=== PATIENT | male | born 1950 | race Caucasian/White ===

== ENCOUNTER 2022-06-24 08:04 | Day surgery (SDC) | payer OTHER, MEDICARE, SELFPAY ==
[2022-06-21 07:46] VITALS: BMI 24.8
--- NOTE | 2022-06-24 08:07 | W.PM.OPSFHP ---
Same Day Surgery H&P Indication for Procedure/HPI DATE OF PROCEDURE: June 24, 2022 CHIEF COMPLAINT/INDICATIONFOR SURGICAL PROCEDURE: Screening PREOP DIAGNOSIS: Screening PLANNED PROCEDURE: Operation Date: 06/24/22 09:45 Proposed Procedures p Colonoscopy 69489,Z12.11(Not Applicable) - William Hernández MD Medications/Allergies* Home Medications Medication Instructions Recorded Confirmed Type amlodipine 5 mg tablet 5 mg PO DAILY 06/19/22 06/21/22 History celecoxib 100 mg capsule 100 mg PO BID 06/19/22 06/21/22 History levothyroxine 75 mcg tablet 75 mcg PO DAILY 06/19/22 06/21/22 History (Synthroid) lisinopril 40 mg tablet 40 mg PO DAILY 06/19/22 06/21/22 History pravastatin 40 mg tablet 40 mg PO DAILY 06/19/22 06/21/22 History tamsulosin 0.4 mg capsule 0.4 mg PO DAILY 06/19/22 06/21/22 History tizanidine 4 mg capsule 4 mg PO BEDTIME 06/19/22 06/21/22 History Allergies/Adverse Reactions Allergy/AdvReac Type Severity Reaction Status Date / Time No Known Allergies Allergy Unverified 06/19/22 10:07 Pertinent History/Comorbid Conditions* Family History (Updated 06/19/22 @ 10:19 by Heather Lara LPN) Father Mother Cancer Mother Social History Smoking and tobacco status: former smoker Quit status (tobacco): has quit using tobacco Second hand smoke exposure: No Smoking risk assessment/counseling performed?: No Alcohol intake: former Desire information about alcohol rehabilitation?: No Counseling given: No Desire information about substance/drug rehabilitation?: No Counseling given: No Adopted: No Caregiver/support person: No Lives independently: Yes Household members: spouse Housing: House Marital status: Number of children: 2 Highest education level completed: High School Graduate service: No Current occupational status: employed Pertinent Exam Findings alert, oriented x 3, clear to auscultation bilaterally, regular rate & rhythm, operative site marked and procedure specific exam findings Recommendations Surgery/Procedure today Coding Level of Care Code [facility] [place] Worker for Grant Morelos
[2022-06-24 08:31] VITALS: BP 145/98; PULSE 90; RESP 16; TEMP 36.4; O2SAT 99
[2022-06-24] MEDS: sodium chloride 0.9% 1,000 ML 30 ML IV ×2 (08:40→10:39)
--- NOTE | 2022-06-24 09:44 | ANES.PREANE2 ---
Pre-Anesthetic Assessment Height/Weight: Height 1.8 m Weight 80.739 kg Temp Pulse Resp BP Pulse Ox O2 Del Method 97.6 F 90 16 145/98 99 06/24/22 08:31 06/24/22 08:31 06/24/22 08:31 06/24/22 08:31 06/24/22 08:31 06/24/22 08:31 Preop Diagnosis: Screen Operation Date: 06/24/22 09:45 Proposed Procedures p Colonoscopy 82451,Z12.11(Not Applicable) - William Hernández MD Familial anesthetic complications: none Was Beta Dawson taken within 24 hours: N/A Was Clonidine taken within 24 hours: N/A Last intake: Intake Last Liquid Date 06/23/22 Last Liquid Time 23:30 Last Solid Date 06/22/22 Last Solid Time 18:00 Social No alcohol and No tobacco Exam alert, oriented x 3, clear to auscultation bilaterally and regular rate & rhythm Airway Submandibular: within normal limits Cervical ROM: within normal limits Mallampati: Class II Dentition: chipped CV/HEM Hypertension Metabolic Hyperlipidemia and Thyroid Disease Anesthetic Plan ASA status: 2 Anesthesia: MAC Medications/Allergies Home Medications Medication Instructions Recorded Confirmed Last Taken Type amlodipine 5 mg tablet 5 mg PO DAILY 06/19/22 06/24/22 06/23/22 History celecoxib 100 mg capsule 100 mg PO BID 06/19/22 06/24/22 06/22/22 History levothyroxine 75 mcg tablet 75 mcg PO DAILY 06/19/22 06/24/22 06/24/22 History (Synthroid) lisinopril 40 mg tablet 40 mg PO DAILY 06/19/22 06/24/22 06/23/22 History pravastatin 40 mg tablet 40 mg PO DAILY 06/19/22 06/24/22 06/23/22 History tamsulosin 0.4 mg capsule 0.4 mg PO DAILY 06/19/22 06/24/22 06/23/22 History tizanidine 4 mg capsule 4 mg PO BEDTIME 06/19/22 06/24/22 06/23/22 History Allergies Allergy/AdvReac Type Severity Reaction Status Date / Time No Known Allergies Allergy Unverified 06/19/22 10:07 Current Medications Generic Name Dose Route Start Last Admin Trade Name Freq PRN Reason Stop Dose Admin Sodium Chloride 1,000 mls @ 30 mls/hr 06/24/22 08:30 06/24/22 08:40 Sodium Chloride 0.9% IV 30 mls/hr .Q24H ARI Administration PFSH Anesthesia Family History (Updated 06/19/22 @ 10:19 by Heather Lara LPN) Father No problems noted. Mother Cancer Social History (Updated 06/19/22 @ 10:21 by Heather Lara LPN) Smoking and tobacco status: former smoker Quit status (tobacco): has quit using tobacco Second hand smoke exposure: No Smoking risk assessment/counseling performed?: No Alcohol intake: former Desire information about alcohol rehabilitation?: No Counseling given: No Desire information about substance/drug rehabilitation?: No Counseling given: No Adopted: No Caregiver/support person: No Lives independently: Yes Household members: spouse Housing: House Marital status: Number of children: 2 Highest education level completed: High School Graduate service: No Current occupational status: employed Data Anesthesia Cardiac Studies: No Data to Display
[2022-06-24 11:03] VITALS: BP 109/73; PULSE 70; RESP 16; TEMP 36.3; O2SAT 99
[2022-06-24 11:13] VITALS: BP 127/81; PULSE 81; RESP 16; O2SAT 98
--- NOTE | 2022-06-24 12:54 | ANE.PACU2 ---
Inpatient post-anesthesia follow up: Airway intact: Yes Vital signs: Temperature 97.3 F Pulse Rate 81 Respiratory Rate 16 Blood Pressure 127/81 Pulse Oximetry 98 Oxygen Delivery Me thod Room Air Oxygen Flow Rate Fraction of Inspir ed Oxygen Hydration adequate: Yes Nausea and vomiting: No Pain level: 1 Mental status: Baseline
== END 2022-06-24 11:26 | disposition home or self-care (01) ==
PROVIDERS: PCP Nurse Practitioner Family; Visit Provider Internal Medicine
PROC: 0DJD8ZZ Inspection of Lower Intestinal Tract, Via Natural or Artificial Opening Endoscopic (ICD-10-PCS; CPT 45378; principal; 2022-06-24 09:45)
DX: Z12.11 Encounter for screening for malignant neoplasm of colon (principal); K57.30 Diverticulosis of large intestine without perforation or abscess without bleeding; I10 Essential (primary) hypertension; E78.5 Hyperlipidemia, unspecified; Z87.891 Personal history of nicotine dependence
CPT/HCPCS: G0121; J2704; J7030

== ENCOUNTER 2023-11-03 09:18 | Outpatient (CLI) | payer OTHER, MEDICARE, SELFPAY ==
[2023-11-03 10:16] LABS: Alanine Aminotransferase 10 U/L (0-41); Albumin Level 4.8 g/dL (3.5-5.2); Alkaline Phosphatase 89 U/L (40-130); Aspartate Amino Transferase 17 U/L (0-40); Blood Urea Nitrogen 18 mg/dL (8-23); Carbon Dioxide 25 mmol/L (22-29); Chloride 93 mmol/L (98-107); Creatine Phosphokinase 136 U/L (39-308); Globulin 2.4 g/dL (1.3-4.6); Glucose 109 mg/dL (65-115); Osmolality Calculated 268 mOsm/kg (285-295); Sodium 128 mmol/L (136-145); Total Bilirubin 0.3 mg/dL (0.15-1.2); Total Protein 7.2 g/dL (6.6-8.7)
[2023-11-03 10:19] LABS: Anion Gap 14.5 (5-19); Potassium 4.5 mmol/L (3.5-5.1)
== END 2023-11-03 09:19 | disposition home or self-care (01) ==
LOC: LAB 09:22
PROVIDERS: PCP Nurse Practitioner Family; Visit Provider Dermatology
DX: C44.311 Basal cell carcinoma of skin of nose (principal)
CPT/HCPCS: 36415; 80053; 82550

== ENCOUNTER → 2024-03-11 12:51 | Outpatient (BNVA) | payer MEDICARE, OTHER, SELFPAY | PROVIDERS: PCP Nurse Practitioner Family; Visit Provider Dermatology | DX: C44.01 Basal cell carcinoma of skin of lip (principal); C44.311 Basal cell carcinoma of skin of nose; C44.219 Basal cell carcinoma of skin of left ear and external auricular canal; Z85.828 Personal history of other malignant neoplasm of skin; L57.0 Actinic keratosis | CPT/HCPCS: 17000; 99214 ==

== ENCOUNTER → 2024-04-13 12:38 | Outpatient (BNVA) | payer MEDICARE, OTHER, SELFPAY | PROVIDERS: PCP Nurse Practitioner Family; Visit Provider Dermatology | DX: C44.311 Basal cell carcinoma of skin of nose (principal); C44.219 Basal cell carcinoma of skin of left ear and external auricular canal; C00.0 Malignant neoplasm of external upper lip; Z85.828 Personal history of other malignant neoplasm of skin | CPT/HCPCS: 17000; 99214 ==